=== PATIENT | female | born 1970 | race Caucasian/White ===

== ENCOUNTER → 2021-03-02 | Outpatient (CLI) | payer MEDICAID ==
[~2021-03-02] MED LIST: DICL50TA7 PO; LISI10TA26 PO
== END | disposition home or self-care (01) ==
LOC: LAB 09:14
PROVIDERS: ATTEND Neurological Surgery
DX: Z01.812 Encounter for preprocedural laboratory examination (principal); Z20.822 Contact with and (suspected) exposure to COVID-19
CPT/HCPCS: 87426

== ENCOUNTER 2021-03-03 05:36 | Inpatient (IN) | payer MEDICAID ==
[~2021-03-03] VITALS: Ht 154.9 cm; Wt 109.3 kg
[2021-03-03] VITALS (60 sets, daily range): BP systolic 97–139; BP diastolic 50–72
[2021-03-03] MEDS ORDERED: LACTATED RINGERS 1,000 ML IV SCH (06:00)
[2021-03-03] MEDS ORDERED: THROMBIN (BOVINE) 5000 UNITS/VIAL TOP ONE (06:54)
[2021-03-03] MEDS ORDERED: MORPHINE SULFATE 4 MG/ML CPJ (NOT FOR IM USE) IV PRN (07:00)
[2021-03-03] MEDS ORDERED: NICARDIPINE 100 MG in SODIUM CHLORIDE 0.9% 60 ML IV PRN (07:00)
[2021-03-03] MEDS ORDERED: ROCURONIUM BROMIDE 10MG/ML VIAL 5ML IV ONE (07:15)
[2021-03-03] MEDS ORDERED: DEXAMETHASONE 4MG/ML 1ML VIAL ONE (07:15)
[2021-03-03] MEDS ORDERED: HYDROMORPHONE HCL/PF 2MG/ML (OR) ONE (07:16)
[2021-03-03] MEDS ORDERED: CEFAZOLIN SODIUM 1000MG/VIAL ONE (07:20)
[2021-03-03] MEDS ORDERED: METOPROLOL TARTRATE 5MG/5ML VIAL IV ONE (07:35)
[2021-03-03] MEDS ORDERED: HYDRALAZINE 20MG/ML VIAL ONE (07:37)
[2021-03-03] MEDS: DEXT 5%/LACTATED RINGERS 1,000 ML IV SCH ×3 (09:53→22:43)
[2021-03-03] MEDS ORDERED: ONDANSETRON HCL 4MG/2ML INJ IV PRN (10:15)
[2021-03-03] MEDS ORDERED: DIPHENHYDRAMINE INJ IV PRN (10:15)
[2021-03-03] MEDS ORDERED: NALOXONE INJ IV PRN (10:15)
[2021-03-03] MEDS ORDERED: ONDANSETRON INJ IV PRN (10:15)
[2021-03-03] MEDS: HYDROMORPHONE PCA 10MG/50ML IV PRN (10:40)
[2021-03-03] MEDS ORDERED: CLINDAMYCIN 600 MG in DEXTROSE 5% WATER 50 ML IV SCH (11:00)
[2021-03-03] MEDS ORDERED: DEXAMETHASONE 4MG/ML 1ML VIAL IV SCH (12:00)
[2021-03-03] MEDS: DEXAMETHASONE 4MG/ML 1ML VIAL IV SCH ×3 (13:43→22:43)
[2021-03-03] MEDS: CLINDAMYCIN 600MG PREMIX 50 ML IV SCH ×2 (13:43→22:43)
[2021-03-03] MEDS ORDERED: ACETAMINOPHEN 650MG SUPP PR PRN (22:45)
[2021-03-04] VITALS (91 sets, daily range): BP systolic 85–132; BP diastolic 46–81
[2021-03-04] MEDS: DEXAMETHASONE 4MG/ML 1ML VIAL IV SCH ×2 (05:06→12:41)
[2021-03-04] MEDS: CLINDAMYCIN 600MG PREMIX 50 ML IV SCH ×2 (05:06→12:41)
[2021-03-04 05:45] LABS: CHLORIDE 111 mEq/L (98-107)
[2021-03-04 05:54] LABS: BASOPHILS % 0.1 % (0.0-2.0); HEMOGLOBIN. 11.4 g/dL (12.0-16.0); LYMPHOCYTES % 8.2 % (20.0-50.0); MEAN CORPUSCULAR VOLUME 83.6 fL (81.0-99.0); MEAN PLATELET VOLUME 6.6 fl (7.4-10.4); NEUTROPHILS % 88.7 % (40.0-76.0); PLATELET 341 x1000/uL (130-400); RED BLOOD CELL COUNT 4.07 mill/uL (4.2-5.4); RED CELL DISTRIBUTION WIDTH 14.2 % (11.6-14.6)
[2021-03-04] MEDS: DEXT 5%/LACTATED RINGERS 1,000 ML IV SCH ×2 (06:46→21:48)
[2021-03-04] MEDS ORDERED: DEXTROSE 50% WATER 50ML SYRINGE IV PRN (10:30)
[2021-03-04] MEDS: BLOOD SUGAR DIAGNOSTIC STRIP TEST SCH ×3 (11:35→21:22)
[2021-03-04] MEDS: INSULIN LISPRO 100 UNITS/ML SUBCUT SCH ×3 (12:00→21:27)
[2021-03-04] MEDS: ATORVASTATIN CALCIUM 10MG TABLET PO SCH (21:26)
[2021-03-05] VITALS (85 sets, daily range): BP systolic 89–165; BP diastolic 44–98
[2021-03-05] MEDS: HYDROMORPHONE PCA 10MG/50ML IV PRN (02:20)
[2021-03-05 05:02] LABS: BASOPHILS % 0.1 % (0.0-2.0); HEMATOCRIT. 31.4 % (36.0-48.0); HEMOGLOBIN. 10.4 g/dL (12.0-16.0); LYMPHOCYTES % 12.1 % (20.0-50.0); MEAN CORPUSCULAR HEMOGLOBIN 27.6 pg (28.0-32.0); MEAN CORPUSCULAR VOLUME 83.6 fL (81.0-99.0); MEAN PLATELET VOLUME 6.7 fl (7.4-10.4); MONOCYTES % 6.3 % (2.0-8.0); NEUTROPHILS % 81.5 % (40.0-76.0); PLATELET 314 x1000/uL (130-400); RED BLOOD CELL COUNT 3.76 mill/uL (4.2-5.4); RED CELL DISTRIBUTION WIDTH 14.1 % (11.6-14.6)
[2021-03-05 05:43] LABS: CHLORIDE 110 mEq/L (98-107)
[2021-03-05] MEDS: BLOOD SUGAR DIAGNOSTIC STRIP TEST SCH ×4 (05:51→21:00)
[2021-03-05] MEDS: INSULIN LISPRO 100 UNITS/ML SUBCUT SCH ×4 (06:02→21:00)
[2021-03-05] MEDS ORDERED: MORPHINE SULFATE 4 MG/ML CPJ (NOT FOR IM USE) IV PRN (12:30)
[2021-03-05] MEDS: DEXT 5%/LACTATED RINGERS 1,000 ML IV SCH ×2 (12:33→17:27)
[2021-03-05] MEDS: ACETAMINOPHEN 325MG TABLET PO PRN ×2 (12:33→18:36)
[2021-03-05] MEDS: ATORVASTATIN CALCIUM 10MG TABLET PO SCH (22:04)
[2021-03-06] VITALS: BP 146/82
[2021-03-06 04:00] VITALS: BP 140/74
[2021-03-06] MEDS: DEXT 5%/LACTATED RINGERS 1,000 ML IV SCH (05:05)
[2021-03-06 06:56] LABS: CHLORIDE 110 mEq/L (98-107)
[2021-03-06 07:04] LABS: BASOPHILS % 0.2 % (0.0-2.0); EOSINOPHILS % 0.1 % (0.0-5.0); HEMATOCRIT. 32.1 % (36.0-48.0); HEMOGLOBIN. 10.9 g/dL (12.0-16.0); MEAN CORPUSCULAR HEMOGLOBIN 28.4 pg (28.0-32.0); MEAN CORPUSCULAR VOLUME 83.7 fL (81.0-99.0); MEAN PLATELET VOLUME 6.6 fl (7.4-10.4); MONOCYTES % 7.6 % (2.0-8.0); NEUTROPHILS % 54.1 % (40.0-76.0); PLATELET 266 x1000/uL (130-400); RED BLOOD CELL COUNT 3.84 mill/uL (4.2-5.4); RED CELL DISTRIBUTION WIDTH 13.9 % (11.6-14.6)
[2021-03-06] MEDS ORDERED: POTASSIUM CHLORIDE 20MEQ/PACKET PO SCH (07:15)
[2021-03-06] MEDS: INSULIN LISPRO 100 UNITS/ML SUBCUT SCH ×2 (07:16→12:20)
[2021-03-06] MEDS: BLOOD SUGAR DIAGNOSTIC STRIP TEST SCH ×2 (07:16→13:01)
[2021-03-06 08:00] VITALS: BP 138/84
[2021-03-06] MEDS ORDERED: LISINOPRIL 10MG TABLET PO SCH (09:00)
[2021-03-06] MEDS ORDERED: ATOR10TA PO (09:45)
[2021-03-06 12:00] VITALS: BP 143/79
[2021-03-06 12:33] VITALS: BP 143/79
== END 2021-03-06 14:32 | disposition home or self-care (01) | DRG 321 ==
LOC: OR 05:36 → MICUNO 05:37 → 6EST 03-05 23:00
PROVIDERS: ADMIT Internal Medicine; ATTEND Internal Medicine
PROC: 0RG10A0 Fusion of Cervical Vertebral Joint with Interbody Fusion Device, Anterior Approach, Anterior Column, Open Approach (ICD-10-PCS; principal; 2021-03-03)
PROC: 4A11X4G Monitoring of Peripheral Nervous Electrical Activity, Intraoperative, External Approach (ICD-10-PCS; 2021-03-03)
DX: M47.12 Other spondylosis with myelopathy, cervical region (principal); G82.50 Quadriplegia, unspecified; E66.01 Morbid (severe) obesity due to excess calories; G95.20 Unspecified cord compression; M48.02 Spinal stenosis, cervical region; M47.22 Other spondylosis with radiculopathy, cervical region; M50.122 Cervical disc disorder at C5-C6 level with radiculopathy; I10 Essential (primary) hypertension; E78.5 Hyperlipidemia, unspecified; R26.89 Other abnormalities of gait and mobility; E87.6 Hypokalemia; Z68.42 Body mass index [BMI] 45.0-49.9, adult; Z79.899 Other long term (current) drug therapy
CPT/HCPCS: 36415; 72040; 72141; 76000; 80048; 80061; 82962; 83735; 85025; 86850; 86900; 88304; 88311; 92610; 93005; 93306; 95863; 95925; 95926; 95928; 95929; 97110; 97162; 97166; 97530; C1713; J0360; J0690; J1100; J1170; J1815; J2405; J3490; J7060; J7121; C1762